=== PATIENT | male | born 1965 | race Caucasian/White ===

== ENCOUNTER 2020-07-10 11:41 | Emergency (ER) | payer SELFPAY ==
[~2020-07-10] VITALS: Ht 182.9 cm; Wt 86.2 kg
[2020-07-10 11:41] VITALS: BP 175/99
[2020-07-10] MEDS ORDERED: KETOROLAC 60 MG/2 ML VIAL IM ONE (12:05)
--- NOTE | 2020-07-10 12:11 | NUR ---
54/M PATIENT BIB [employer]. PT WAS TAKEN TO SKILLED NURSING AND REFUSED TO SIGN MEDICAL FORMS WHILE IN CUSTODY AND IS HERE FOR MEDICAL CLEARANCE. PT HAS BEEN COOPERATIVE UPON ARRIVAL. PATIENT EXAMINED BY DR. TOLENTINO. PATIENT MEDICALLY CLEARED AND RELEASED IN CUSTODY IN STABLE CONDITION. ORIGINAL PRE-BOOK FORM GIVEN TO OFFICER DIMA.
[2020-07-10 12:29] VITALS: BP 175/99
--- NOTE | 2020-07-10 12:29 | NUR ---
Patient discharged with v/s stable. Written and verbal after care instructions given and explained. Patient alert, oriented and verbalized understanding of instructions. Ambulatory with steady gait. All questions addressed prior to discharge. ID band removed. Patient advised to follow up with PMD. Rx of Prednisone 20mg given. Patient educated on indication of medication including possible reaction and side effects. Opportunity to ask questions provided and answered.
== END 2020-07-10 12:29 ==
LOC: MED 11:41
DX: M54.5 Low back pain (principal); R05 Cough; Z88.8 Allergy status to other drugs, medicaments and biological substances; Z02.89 Encounter for other administrative examinations
CPT/HCPCS: 96372; 99283; J1885